=== PATIENT | female | born 1990 | race Two or more races ===

== ENCOUNTER → 2018-03-05 | Outpatient (CLI) | payer SELFPAY ==
--- NOTE | 2018-03-05 14:57 | RADIOLOGY REPORT (SQ) ---
EXAM DESCRIPTION: U/S [id number] TRNABD 1GES W/ODOP COMPLETED DATE/TIME: 03/05/2018 2:02 pm REASON FOR STUDY: Z34.81ENCOUNTER FOR SUPRVSN OF NORMAL , FIRST TRIMESTER Z34.81 ENCOUNTER FOR SUPRVSN OF NORMAL , FIRST TRIM COMPARISON: None. TECHNIQUE: Transabdominal static and realtime grayscale images acquired of the pelvis. Additional se lected spectral and color Doppler images recorded. All images stored on PACs. bHCG: Not available CLINICAL DATES: Not available LIMITATIONS: None. FINDINGS: FETUS: Living intrauterine . ULTRASOUND EGA: 12 weeks 0 days ULTRASOUND JULIA: 09/17/2018 CRL: 5 cm FHR: 153 beats per minute. SUBCHORIONIC BLEED: No SIZE OF BLEED: Not applicable. UTERUS: No masses. No anomalies. Uterus is 11 x 9 x 7 cm in size. CERVICAL LENGTH: 3 cm Closed. RIGHT ADNEXA: Not visualized LEFT ADNEXA: Not visualized FREE FLUID: None. OTHER: No other significant finding. IMPRESSION: LIVING INTRAUTERINE . EGA 12 weeks 0 days Trimester of : First - 0 to 13 weeks. TECHNICAL DOCUMENTATION: JOB ID: [id number] [employer]- All Rights Reserved rev Reading location - IP/workstation name: [email or web address]
== END ==
LOC: EDBD 13:00 → RAD 17:15
PROVIDERS: ATTEND Nurse Practitioner Women's Health
DX: Z34.81 Encounter for supervision of other normal pregnancy, first trimester (principal)
CPT/HCPCS: 76801

== ENCOUNTER 2018-09-07 16:33 | Inpatient (IN) | payer SELFPAY ==
[2018-09-07] MEDS ORDERED: RINGERS SOLUTION,LACTATED 1,000 ML IV ONE (17:38)
[2018-09-07] MEDS ORDERED: RINGERS SOLUTION,LACTATED 1,000 ML IV PRN (17:38)
[2018-09-07] MEDS ORDERED: MISOPROSTOL 0.2 MG TABLET ONE (18:00)
[2018-09-07] MEDS ORDERED: OXYTOCIN/NORMAL SALINE 20 UNIT/1,000 ML RTUINJ ONE (18:00)
[2018-09-07] MEDS ORDERED: LIDOCAINE 1% INJ-PF (10 MG/ML) 30 ML SDV ONE (18:00)
[2018-09-07] MEDS ORDERED: OXYTOCIN 10 UNIT/ML VIAL ONE (18:00)
[2018-09-07 18:15] LABS: ABSOLUTE LYMPHOCYTES (AUTO) 1.1 10^3/uL (0.5-4.7); ABSOLUTE MONOCYTES (AUTO) 0.4 10^3/uL (0.1-1.4); ABSOLUTE NEUT (AUTO) 6.5 10^3/uL (1.7-8.2); BASOPHILS % (AUTO) 0.5 % (0-2); HEMATOCRIT 36.8 % (36.0-47.0); HEMOGLOBIN 12.8 g/dL (12.0-15.5); LYMPHOCYTES % (AUTO) 13.5 % (13-45); MEAN CORPUSCULAR HEMOGLOBIN 29.4 pg (27.0-33.4); MEAN CORPUSCULAR HGB CONC 34.8 g/dL (32.0-36.0); MEAN CORPUSCULAR VOLUME 84 fl (80-97); MONOCYTES % (AUTO) 5.1 % (3-13); PLATELET COUNT 203 10^3/uL (150-450); RED BLOOD COUNT 4.37 10^6/uL (3.72-5.28); RED CELL DISTRIBUTION WIDTH 15.4 % (11.5-14.0); SEGMENTED NEUTROPHILS % (AUTO) 80.9 % (42-78); TOTAL CELLS COUNTED % (AUTO) 100 %
--- NOTE | 2018-09-07 18:42 | Admission Physical ---
Datetime Report Generated by CPN: 09/07/2018 18:41 CURRENT ADMISSION Chief Complaint: Uterine Contractions Indication for Induction: Not Applicable Admit Impression : Term, Intrauterine ; Active Labor Admit Plan: Admit to Unit; Initiate Labor Protocol ALLERGIES Medication Allergies: No Medication Allergies: No Known Allergies (09/07/2018) Latex: No Latex Allergies Food Allergies: n/a Environmental Allergies: n/a OBSTETRICAL HISTORY EDC: 09/17/2018 00:00 : 2 Para: 1 Term: 1 : 0 SAB: 0 IAB: 0 Ectopic: 0 Livin Cesareans: 0 VBACs: 0 Multiple Births: 0 Gestational Diabetes: No Rh Sensitization: No Incompetent Cervix: No DREAD: No Infertility: No ART Treatment: No Uterine Anomaly: No IUGR: No Hx Previous C/S: No Macrosomia: No Hx Loss/Stillborn: No PIH: No Hx : No Placenta Previa/Abruption: No Depression/PP Depression: No PTL/PROM: No Post Hemorrhage: No Current Procedures: Ultrasound Obstetrical History Comments: G1- term G2- current SEE RECORDS Alcohol: No Marijuana : No Cocaine: No Other Illicit Drugs: No Cigarettes: Unknown if ever Smoked. [id number] MEDICAL HISTORY Diabetes: No Blood Transfusion: No Pulmonary Disease (Asthma, TB): No Breast Disease: No Hypertension: No Sql Ssrs Developer Surgery: No Heart Disease: No Hosp/Surgery: No Autoimmune Disorder: No Anesthetic Complications: No Kidney Disease: No Abnormal Pap Smear: No Neuro/Epilepsy: No Psychiatric Disorders: No Other Medical Diseases: No Hepatitis/Liver Disease: No Significant Family History: No Varicosities/Phlebitis: No Trauma/Violence : No Thyroid Dysfunction: No INFECTIOUS HISTORY Gonorrhea: No Genital Herpes: No Chlamydia: No Tuberculosis: No Syphilis: No Hepatitis: No HIV/AIDS Exposure: No Rash or Viral Illness: No HPV: No PHYSICAL EXAM General: Normal HEENT: Normal Neurologic: Normal Thyroid: Normal Heart: Normal Lungs: Normal Breast: Normal Back: Normal Abdomen: Normal Genitourinary Exam: Normal Extremities: Normal DTRs: Normal Pelvic Type: Adequate Vital Signs: Reviewed VAGINAL EXAM Dilatation: 4 Effacement: 90 Station: -2 MEMBRANES Pooling: Negative Membranes: Intact Amniotic Fluid Color: Clear FETUS A EGA: 38.4 Monitoring: External US FHR- Baseline: 140 Variability: Moderate 6-25bpm Accelerations: 15X15 Decelerations: None FHR Category: Category I Estimated Weight (gm): 3500 Presentation: Vertex PLANS FOR LABOR AND DELIVERY Labor and Delivery: None Pain Management: Natural Feeding Preference: Both Benefit of Breast Feed Discussed: Yes Circumcision: No INFORMED CONSENT Signature: with User ID: [email or web address]
[2018-09-07] MEDS ORDERED: EPHEDRINE SULFATE INJ 50 MG/1 ML AMPULE ONE (21:07)
[2018-09-07] MEDS ORDERED: PHENYLEPHRINE HCL INJ/PF 10 MG/1 ML SDV ONE (21:07)
[2018-09-07] MEDS ORDERED: FENTANYL CITRATE INJ/PF 100 MCG/2 ML AMPUL ONE (21:07)
[2018-09-07] MEDS ORDERED: BUPIVACAINE HCL 0.25 % INJ/PF (2.5 MG/1 ML) 30 ML VIAL ONE (21:08)
[2018-09-07] MEDS ORDERED: FENTANYL/BUPIVACAINE/NS/PF 300 MCG/150 ML RTUINJ EPI ONE (21:09)
[2018-09-08] MEDS ORDERED: ACETAMINOPHEN 650 MG SUPP.RECT PR PRN (02:40)
[2018-09-08] MEDS ORDERED: DIPHENHYDRAMINE HCL 25 MG CAPSULE PO PRN (02:40)
[2018-09-08] MEDS ORDERED: PROMETHAZINE HCL 25 MG SUPP.RECT PR PRN (02:40)
[2018-09-08] MEDS ORDERED: MAGNESIUM HYDROXIDE SUSP 30 ML UDCUP PO PRN (02:40)
[2018-09-08] MEDS ORDERED: NA PHOS,M-B/NA PHOS,DI-BA (ADULT) 133 ML ENEMA PR PRN (02:40)
[2018-09-08] MEDS ORDERED: OXYTOCIN/NORMAL SALINE 20 UNIT/1,000 ML RTUINJ IV PRN (02:40)
[2018-09-08] MEDS ORDERED: ZOLPIDEM TARTRATE 5 MG TABLET PO PRN (02:40)
[2018-09-08] MEDS ORDERED: ACETAMINOPHEN WITH CODEINE #3 TABLET PO PRN ×2 (02:40)
[2018-09-08] MEDS ORDERED: GLYCERIN/WITCH HAZEL LEAF 1 EACH MED..PAD TP PRN (02:40)
[2018-09-08] MEDS ORDERED: DIBUCAINE 1% OINTMENT 28 GM TP PRN (02:40)
[2018-09-08] MEDS ORDERED: BENZOCAINE/MENTHOL AEROSOL SPRAY 56 ML TOP PRN (02:40)
[2018-09-08] MEDS ORDERED: DIPH/PERTUSS(ACELL)/TETANUS VAC/PF 0.5 ML SYR (>=10YO) IM PRN (02:40)
[2018-09-08] MEDS ORDERED: PSEUDOEPHEDRINE HCL 30 MG TABLET PO PRN (02:40)
[2018-09-08] MEDS ORDERED: PROMETHAZINE HCL 25 MG TABLET PO PRN (02:40)
[2018-09-08] MEDS ORDERED: MEASLES,MUMPS&RUBELLA VACC/PF 0.5 ML VIAL SUBCUT PRN (02:40)
[2018-09-08] MEDS ORDERED: PROMETHAZINE HCL INJ 25 MG/1 ML VIAL IV PRN (02:40)
[2018-09-08] MEDS: IBUPROFEN 800 MG TABLET PO SCH ×3 (06:44→22:34)
[2018-09-08] MEDS: SENNOSIDES/DOCUSATE 8.6-50 MG 1 EACH TABLET PO SCH (10:12)
[2018-09-08] MEDS: DOCUSATE SODIUM 100 MG CAPSULE PO SCH ×2 (10:12→17:45)
[2018-09-08] MEDS: FAMOTIDINE 20 MG TABLET PO SCH ×2 (10:13→22:35)
[2018-09-08] MEDS: PRENATAL VITAMIN W DHA CAPSULE PO SCH (10:13)
[2018-09-08] MEDS: FERROUS SULFATE 325 MG TABLET PO SCH ×2 (10:13→17:45)
--- NOTE | 2018-09-08 10:56 | PDOC PROGRESS REPORT ---
Subjective-OB Progress Note for:: 09/08/18 Subjective: Doing well, no c/o, breast and bottle, voiding, no c/o Physical Exam (OB) Vital Signs: Temp Pulse Resp BP Pulse Ox 98.4 F 66 18 103/55 L 97 09/08/18 08:52 09/08/18 08:52 09/08/18 08:52 09/08/18 08:52 09/08/18 08:52 Intake & Output 09/07/18 09/08/18 09/09/18 06:59 06:59 06:59 Weight 64.3 kg Objective-Diagnostic Laboratory: 09/07/18 18:00 09/07/18 09/07/18 18:00 18:00 WBC 8.0 RBC 4.37 Hgb 12.8 Hct 36.8 MCV 84 MCH 29.4 MCHC 34.8 RDW 15.4 H Plt Count 203 Seg Neutrophils % 80.9 H Lymphocytes % 13.5 Monocytes % 5.1 Eosinophils % 0.0 Basophils % 0.5 Absolute Neutrophils 6.5 Absolute Lymphocytes 1.1 Absolute Monocytes 0.4 Absolute Eosinophils 0.0 Absolute Basophils 0.0 Blood Type O POSITIVE Antibody Screen NEGATIVE Assessment and Plan(PN) - Assessment and Plan (1) Normal vaginal delivery Is this a current diagnosis for this admission?: Yes - Time Spent with Patient Time with patient: Less than 15 minutes Medications reviewed and adjusted accordingly: Yes - Disposition Anticipated Discharge: Home Within: within 48 hours
[2018-09-09] MEDS: IBUPROFEN 800 MG TABLET PO SCH ×3 (05:41→21:17)
[2018-09-09 07:07] LABS: HEMATOCRIT 33.3 % (36.0-47.0); HEMOGLOBIN 11.5 g/dL (12.0-15.5); MEAN CORPUSCULAR HEMOGLOBIN 29.6 pg (27.0-33.4); MEAN CORPUSCULAR HGB CONC 34.6 g/dL (32.0-36.0); MEAN CORPUSCULAR VOLUME 86 fl (80-97); PLATELET COUNT 182 10^3/uL (150-450); RED CELL DISTRIBUTION WIDTH 15.6 % (11.5-14.0); WHITE BLOOD COUNT 8.6 10^3/uL (4.0-10.5)
--- NOTE | 2018-09-09 09:59 | PDOC PROGRESS REPORT ---
Subjective Progress Note for:: 09/09/18 Subjective:: Patient states that she feels good; breast-feeding going well. She states that her lochia is decreasing. She denies chest pain, shortness of breath, fever/ chills or nausea/vomiting. She is ambulating and voiding without difficulty Reason For Visit: Physical Exam - Physical Exam Vital Signs: Temp Pulse Resp BP Pulse Ox 97.9 F 69 16 106/67 97 09/09/18 08:33 09/09/18 08:33 09/09/18 08:33 09/09/18 08:33 09/09/18 08:33 Intake & Output 09/08/18 09/09/18 09/10/18 06:59 06:59 06:59 Weight 64.3 kg General appearance: PRESENT: no acute distress Respiratory exam: PRESENT: clear to auscultation jared Cardiovascular exam: PRESENT: RRR GI/Abdominal exam: PRESENT: normal bowel sounds, soft - Fundus firm and below umbilicus Extremities exam: ABSENT: calf tenderness, clubbing, full ROM, joint swelling, pedal edema, tenderness, +1 edema, +2 edema, other Result Laboratory Results: 09/09/18 06:36 09/09/18 06:36 WBC 8.6 RBC 3.90 Hgb 11.5 L Hct 33.3 L MCV 86 MCH 29.6 MCHC 34.6 RDW 15.6 H Plt Count 182 Assessment & Plan - Diagnosis (1) Normal vaginal delivery Is this a current diagnosis for this admission?: Yes - Time Time Spent with patient: Less than 15 minutes Within: within 48 hours - Plan Summary Plan Summary: Plan: 1. Continue care
[2018-09-09] MEDS: PRENATAL VITAMIN W DHA CAPSULE PO SCH (10:15)
[2018-09-09] MEDS: FERROUS SULFATE 325 MG TABLET PO SCH ×2 (10:15→17:35)
[2018-09-09] MEDS: DOCUSATE SODIUM 100 MG CAPSULE PO SCH ×2 (10:15→17:35)
[2018-09-09] MEDS: SENNOSIDES/DOCUSATE 8.6-50 MG 1 EACH TABLET PO SCH (10:15)
[2018-09-09] MEDS: FAMOTIDINE 20 MG TABLET PO SCH ×2 (10:15→21:17)
[2018-09-10] MEDS: IBUPROFEN 800 MG TABLET PO SCH ×2 (05:16→13:26)
--- NOTE | 2018-09-10 10:03 | PDOC DISCHARGE SUMMARY ---
Final Diagnosis Discharge Date: 09/10/18 - PP Day #2, Breast and bottle feeding, doing well, no complaints O+ Rubella Immune - Final Diagnosis (1) Normal course Is this a current diagnosis for this admission?: Yes (2) Normal vaginal delivery Is this a current diagnosis for this admission?: Yes Discharge Data - Discharge Medication Prescriptions: Ibuprofen [Motrin 800 mg Tablet] 800 mg PO Q8 #60 tablet Home Medications: Ibuprofen [Motrin 800 mg Tablet] 800 mg PO Q8 #60 tablet 09/10/18 Reason(s) for Admission: Onset of Labor Procedures: Ultrasound Intrapartum Procedure(s): Spontaneous Vaginal Delivery - Diagnosis Test Laboratory: Temp Pulse Resp BP Pulse Ox 98.2 F 75 17 130/81 H 97 09/10/18 08:21 09/10/18 08:21 09/10/18 08:21 09/10/18 08:21 09/10/18 08:21 09/07/18 09/09/18 18:00 06:36 RBC 4.37 3.90 Hgb 12.8 11.5 L Hct 36.8 33.3 L - Discharge information/Instructions Discharge Activity: Activity As Tolerated, Pelvic Rest Discharge Diet: As Tolerated, Regular Disposition: HOME, SELF-CARE Follow up with: [facility] in: 4, Weeks
[2018-09-10] MEDS: DOCUSATE SODIUM 100 MG CAPSULE PO SCH (10:25)
[2018-09-10] MEDS: SENNOSIDES/DOCUSATE 8.6-50 MG 1 EACH TABLET PO SCH (10:25)
[2018-09-10] MEDS: FERROUS SULFATE 325 MG TABLET PO SCH (10:25)
[2018-09-10] MEDS: FAMOTIDINE 20 MG TABLET PO SCH (10:25)
[2018-09-10] MEDS: PRENATAL VITAMIN W DHA CAPSULE PO SCH (10:25)
[2018-09-10 11:01] VITALS: BP 103/55
--- NOTE | 2018-09-17 10:05 | Delivery Summary ---
Del Sum A-C Datetime Report Generated by CPN: 09/17/2018 10:05 DELIVERY PERSONNEL DELIVERY PERSONNEL: [id number] Delivery Doctor:: Jennifer Hopkins MD Labor and Delivery Nurse:: Amber Peres RNcone picker Nurse:: Sophie Borrero RN Ortho Nurse/EPIC CADENCE ANALYST: Mallory Chari, ST MATERNAL INFORMATION Delivery Anesthesia: Epidural Medications After Delivery: Pitocin Drip 20 Units/1000ml NSS Estimated Blood Loss (ml): 200 Maternal Complications: None LABOR SUMMARY EDC: 09/17/2018 00:00 No. Babies in Womb: 1 Attempted: No Labor Anesthesia: Epidural LABOR INFORMATION Reason for Induction: Not Applicable Onset of Labor: 09/07/2018 17:05 Complete Dilatation: 09/08/2018 00:49 Oxytocin: Augmentation Group B Beta Strep: negative Steroids Given: None Reason Steroids Not Administered: Not Applicable MEMBRANES Membranes Rupture Method: Artificial Rupture of Membranes: 09/08/2018 00:34 Length of Rupture (hr): 1.90 Amniotic Fluid Color: Clear Amniotic Fluid Amount: Small Amniotic Fluid Odor: Normal STAGES OF LABOR Stage 1 hr: 7 Stage 1 min: 44 Stage 2 hr: 1 Stage 2 min: 39 Stage 3 hr: 0 Stage 3 min: 7 Total Time in Labor hr: 9 Total Time in Labor min: 30 VAGINAL DELIVERY Episiotomy: None Laceration #1: None Laceration Extension #1: N/A Laceration Repair: Not Applicable Sponge Count Correct: N/A CSECTION DELIVERY Primary Indication: N/A Secondary Indication: N/A CSection Incision: N/A BABY A INFORMATION Delivery Date/Time: 09/08/2018 02:28 Method of Delivery: Vaginal Method of Delivery: Vaginal Born in Route : No : N/A Forceps: N/A Vacuum Extraction: N/A Shoulder Dystocia : No PRESENTATION/POSITION BABY A Presentation: Cephalic Cephalic Presentation: Vertex Vertex Position: Right Occipital Anterior Breech Presentation: N/A PLACENTA INFORMATION BABY A Placenta Delivery Time : 09/08/2018 02:35 Placenta Method of Delivery: Spontaneous Placenta Method of Delivery: Spontaneous Placenta Status: Delivered SCORES BABY A Heart Rate 1 min: >100 bpm Resp Effort 1 min: Good Cry Reflex Irritability 1 min: Cough or Sneeze or Pulls Away Muscle Tone 1 min: Active Motion Color 1 min: Body [place], Extremities Blue Resuscitation Effort 1 min: Tactile Stimulation SCORE 1 MIN: 9 Heart Rate 5 min: >100 bpm Resp Effort 5 min: Good Cry Reflex Irritability 5 min: Cough or Sneeze or Pulls Away Muscle Tone 5 min: Active Motion Color 5 min: Body [place], Extremities Blue Resuscitation Effort 5 min: Tactile Stimulation SCORE 5 MIN: 9 INFORMATION BABY A Gestational Age at Delivery: 38.5 Gestational Status: Early Term- 37- 38.6 Weeks Infant Outcome : Liveborn Infant Condition : Stable Sex: Male Infant Sex: Male IDENTIFICATION BABY A Infant Verification Date/Time: 09/08/2018 03:42 ID Band Number: [id number] Mother's Name Verified: Yes RN Verifying Infant: rn jaelyn Additional Verifying Personnel: rn hill WEIGHT/LENGTH BABY A Birthweight (gm): 3560 Weight (lb): 7 Weight (oz): 14 Length (in): 18.75 Length (cm): 47.63 CORD INFORMATION BABY A No. Cord Vessels: 3 Nuchal Cord : N/A Cord Blood Taken: Yes-For Eval (Mom's Blood Type - or O+) Suction: Mouth ASSESSMENT BABY A Complications: None Physical Findings at Delivery: Cap[place] Infant Respirations: Appears Normal Skin to Skin: Yes Awning Finisher/ALS Called : No Infant Care By: RN Annsmmat Transferred To: Remains with Mother BABY B INFORMATION : N/A SIGNATURES Signature: with User ID: [email or web address]
== END 2018-09-10 15:00 | disposition home or self-care (01) | DRG 807 ==
LOC: LC 16:33 → LR 17:44 → 2S 09-08 04:58
PROVIDERS: ADMIT Obstetrics & Gynecology; ATTEND Obstetrics & Gynecology
PROC: 4A1HXCZ Monitoring of Products of Conception, Cardiac Rate, External Approach (ICD-10-PCS; 2018-09-07)
PROC: 10E0XZZ Delivery of Products of Conception, External Approach (ICD-10-PCS; principal; 2018-09-08)
PROC: 3E02340 Introduction of Influenza Vaccine into Muscle, Percutaneous Approach (ICD-10-PCS; 2018-09-10)
DX: O80 Encounter for full-term uncomplicated delivery (principal); Z37.0 Single live birth; Z3A.38 38 weeks gestation of pregnancy; Z23 Encounter for immunization
CPT/HCPCS: 36415; 85025; 85027; 86592; 86850; 86900; 86901; 90471; 90686; 94760; G0008; J2370; J2590; J3010; J3490

== ENCOUNTER → 2019-06-24 | Outpatient (CLI) | payer SELFPAY ==
--- NOTE | 2019-06-24 16:23 | RADIOLOGY REPORT (SQ) ---
EXAM DESCRIPTION: U/S OB 14+ TRNABD 1GES W/O DOP COMPLETED DATE/TIME: 06/24/2019 3:26 pm REASON FOR STUDY: Z34.82 ENCOUNTER FOR SUPRVSN OF NORMAL , SECOND TRIMESTER Z34.82 ENCOUNT ER FOR SUPRVSN OF NORMAL , SECOND TRI COMPARISON: None. TECHNIQUE: Static and Dynamic grayscale imaging performed of gravid uterus using transabdominal appr oach. Additional selected color Doppler and spectral images recorded. All stored on PACS. LIMITATIONS: None. FINDINGS: FETUSES SEEN:1 EGA: 26 weeks 6 days Calculated using BPD,FL,HC,AC documented on images. No discrepancy with clinica l dates. JULIA: 09/24/2019 EFW: 939+/- 139 grams PERCENTILE: Not calculated. LVP: 5.3 cm. PLACENTA: Posterior. GRADE: I PRESENTATION: Cephalic. ANATOMY: HEART RATE: 180 beats per minute. FOUR CHAMBER HEART: Visualized. THREE VESSEL CORD: Yes. CORD INSERTION: Visualized. KIDNEYS AND BLADDER: Visualized. Appear normal. STOMACH: Visualized. Appears normal. SPINE: Normal as visualized. BRAIN AND LATERAL VENTRICLES: Visualized. Appear normal. OTHER: No other significant finding. MATERNAL ADNEXA: Maternal ovaries not visualized. CERVICAL LENGTH: 2.5 cm Closed. OTHER: No other significant finding. IMPRESSION: LIVING INTRAUTERINE . ESTIMATED GESTATIONAL AGE 26 weeks 6 days NO VISUALIZED ANOMALIES. Trimester of : Second trimester - 13 weeks 1 day to 27 weeks 6 days. TECHNICAL DOCUMENTATION: JOB ID: [id number] [employer]- All Rights Reserved Reading location - IP/workstation name: [email or web address]
== END ==
LOC: RAD 14:35
PROVIDERS: ATTEND Nurse Practitioner Family
DX: Z34.82 Encounter for supervision of other normal pregnancy, second trimester (principal)
CPT/HCPCS: 76805

== ENCOUNTER 2019-09-18 16:59 | Inpatient (IN) | payer SELFPAY ==
[2019-09-18] MEDS ORDERED: RINGERS SOLUTION,LACTATED 1,000 ML IV PRN (17:09)
[2019-09-18] MEDS ORDERED: OXYTOCIN/NORMAL SALINE 20 UNIT/1,000 ML RTUINJ ONE (17:10)
[2019-09-18] MEDS ORDERED: LIDOCAINE 1% INJ-PF (10 MG/ML) 30 ML SDV ONE (17:10)
[2019-09-18] MEDS ORDERED: MISOPROSTOL 0.2 MG TABLET ONE (17:10)
[2019-09-18] MEDS ORDERED: OXYTOCIN 10 UNIT/ML VIAL ONE (17:10)
--- NOTE | 2019-09-18 17:42 | Admission Physical ---
Datetime Report Generated by CPN: 09/18/2019 17:42 CURRENT ADMISSION Chief Complaint: Uterine Contractions Indication for Induction: Not Applicable Admit Impression : Term, Intrauterine ; Active Labor; Intact Membranes Admit Plan: Admit to Unit ALLERGIES Medication Allergies: No Known Allergies (09/07/2018) OBSTETRICAL HISTORY : 3 Para: 2 Term: 2 : 0 SAB: 0 IAB: 0 Ectopic: 0 Livin Cesareans: 0 VBACs: 0 Multiple Births: 0 Gestational Diabetes: No Rh Sensitization: No Incompetent Cervix: No DREAD: No Infertility: No ART Treatment: No Uterine Anomaly: No IUGR: No Hx Previous C/S: No Macrosomia: No Hx Loss/Stillborn: No PIH: No Hx : No Placenta Previa/Abruption: No Depression/PP Depression: No PTL/PROM: No Post Hemorrhage: No Current Procedures: Ultrasound; NST SEE RECORDS Alcohol: No Marijuana : No Cocaine: No Other Illicit Drugs: No MEDICAL HISTORY Diabetes: No Blood Transfusion: No Pulmonary Disease (Asthma, TB): No Breast Disease: No Hypertension: No Exchange Architect Surgery: No Heart Disease: No Hosp/Surgery: No Autoimmune Disorder: No Anesthetic Complications: No Kidney Disease: No Abnormal Pap Smear: No Neuro/Epilepsy: No Psychiatric Disorders: No Other Medical Diseases: No Hepatitis/Liver Disease: No Significant Family History: No Varicosities/Phlebitis: No Trauma/Violence : No Thyroid Dysfunction: No INFECTIOUS HISTORY Gonorrhea: No Genital Herpes: No Chlamydia: No Tuberculosis: No Syphilis: No Hepatitis: No HIV/AIDS Exposure: No Rash or Viral Illness: No HPV: No PHYSICAL EXAM General: Normal HEENT: Normal Neurologic: Normal Thyroid: Normal Heart: Normal Lungs: Normal Breast: Normal Back: Normal Abdomen: Normal Genitourinary Exam: Normal Extremities: Normal DTRs: Normal Pelvic Type: Adequate Vital Signs: Reviewed; Within Normal Limits VAGINAL EXAM Dilatation: 6 Effacement: 90 Station: 0 Contraction Comments: q 2-3 MEMBRANES Membranes: Intact FETUS A Monitoring: External US FHR- Baseline: 130s Variability: Moderate 6-25bpm Accelerations: Absent Decelerations: None FHR Category: Category I Admit Comment: w/IUP @ 40-1/7 weeks presents to L_D c/o contractions. She reports good movement. She GBS Neg. No co-morbidities. Language barrier. PLANS FOR LABOR AND DELIVERY Labor and Delivery: None Pain Management: Medications; Epidural Feeding Preference: Both Benefit of Breast Feed Discussed: Yes INFORMED CONSENT Signature: with User ID: [email or web address]
[2019-09-18] MEDS ORDERED: ZOLPIDEM TARTRATE 5 MG TABLET PO PRN (18:10)
[2019-09-18] MEDS ORDERED: ACETAMINOPHEN WITH CODEINE #3 TABLET PO PRN ×2 (18:10)
[2019-09-18] MEDS ORDERED: DIBUCAINE 1% OINTMENT 56 GM TP PRN (18:10)
[2019-09-18] MEDS ORDERED: BENZOCAINE/MENTHOL AEROSOL SPRAY 56 ML TOP PRN (18:10)
[2019-09-18] MEDS ORDERED: DIPH/PERTUSS(ACELL)/TETANUS VAC/PF 0.5 ML SYR (>=10YO) IM PRN (18:10)
[2019-09-18] MEDS ORDERED: OXYTOCIN/NORMAL SALINE 20 UNIT/1,000 ML RTUINJ IV PRN (18:10)
[2019-09-18 18:35] LABS: ABSOLUTE MONOCYTES (AUTO) 0.2 10^3/uL (0.1-1.4); ABSOLUTE NEUT (AUTO) 7.4 10^3/uL (1.7-8.2); BASOPHILS % (AUTO) 0.3 % (0-2); HEMATOCRIT 39.6 % (36.0-47.0); HEMOGLOBIN 13.5 g/dL (12.0-15.5); LYMPHOCYTES % (AUTO) 11.7 % (13-45); MEAN CORPUSCULAR HEMOGLOBIN 29.4 pg (27.0-33.4); MEAN CORPUSCULAR HGB CONC 34.2 g/dL (32.0-36.0); MEAN CORPUSCULAR VOLUME 86 fl (80-97); MONOCYTES % (AUTO) 2.8 % (3-13); PLATELET COUNT 168 10^3/uL (150-450); RED BLOOD COUNT 4.61 10^6/uL (3.72-5.28); RED CELL DISTRIBUTION WIDTH 15.7 % (11.5-14.0); SEGMENTED NEUTROPHILS % (AUTO) 85.2 % (42-78); TOTAL CELLS COUNTED % (AUTO) 100 %; WHITE BLOOD COUNT 8.7 10^3/uL (4.0-10.5)
[2019-09-18] MEDS ORDERED: IBUPROFEN 800 MG TABLET ONE (18:56)
[2019-09-18 22:33] LABS: BILIRUBIN,URINE NEGATIVE (NEGATIVE); GLUCOSE, URINE 150 mg/dL (NEGATIVE); KETONES,URINE NEGATIVE (NEGATIVE); LEUKOCYTE ESTERASE,URINE NEGATIVE (NEGATIVE); NITRITE,URINE NEGATIVE (NEGATIVE); PROTEIN,URINE >=500 mg/dL (NEGATIVE); URINE SPECIFIC GRAVITY 1.034; UROBILINOGEN,URINE NEGATIVE mg/dL (<2.0)
[2019-09-18 22:36] LABS: APPEARANCE,URINE TURBID; COLOR,URINE RED
[2019-09-18 23:02] LABS: URINE AMPHETAMINES SCREEN NEGATIVE; URINE BARBITURATES SCREEN NEGATIVE; URINE BENZODIAZEPINES SCREEN NEGATIVE; URINE COCAINE SCREEN NEGATIVE; URINE MARIJUANA (THC) SCREEN NEGATIVE; URINE METHADONE SCREEN NEGATIVE; URINE PHENCYCLIDINE SCREEN NEGATIVE
[2019-09-19] MEDS: IBUPROFEN 800 MG TABLET PO SCH ×4 (02:29→21:17)
[2019-09-19 08:43] LABS: HEMATOCRIT 31.8 % (36.0-47.0); MEAN CORPUSCULAR HEMOGLOBIN 29.7 pg (27.0-33.4); MEAN CORPUSCULAR HGB CONC 35.3 g/dL (32.0-36.0); MEAN CORPUSCULAR VOLUME 84 fl (80-97); PLATELET COUNT 160 10^3/uL (150-450); RED BLOOD COUNT 3.77 10^6/uL (3.72-5.28); RED CELL DISTRIBUTION WIDTH 15.5 % (11.5-14.0); WHITE BLOOD COUNT 8.8 10^3/uL (4.0-10.5)
[2019-09-19 08:44] LABS: HEMOGLOBIN 11.2 g/dL (12.0-15.5)
--- NOTE | 2019-09-19 08:49 | PDOC PROGRESS REPORT ---
Subjective-OB Progress Note for:: 09/19/19 Subjective: OOB in room, no c/o, breast/bottle, scant bleeding. voiding Physical Exam (OB) Vital Signs: Temp Pulse Resp BP Pulse Ox 97.8 F 64 16 102/63 99 09/19/19 07:30 09/19/19 07:30 09/19/19 07:30 09/19/19 07:30 09/19/19 07:30 Intake & Output 09/18/19 09/19/19 09/20/19 06:59 06:59 06:59 Output Total 217 Balance -217 Weight 63.9 kg - PIH/Pre-Eclampsia DTR's: 1 + Clonus: Negative Headache: Absent Epigastric Pain: No Visual Changes: No - Lochia Lochia Amount: Scant < 10 ml Lochia Color: Rubra/Red - Abdomen Description: Soft, Round Hernia Present: No Fundal Description: Firm, Midline Fundal Height: 1/u - 2/u Objective-Diagnostic Laboratory: 09/19/19 08:15 09/18/19 09/18/19 09/18/19 18:12 18:12 21:55 WBC 8.7 RBC 4.61 Hgb 13.5 Hct 39.6 MCV 86 MCH 29.4 MCHC 34.2 RDW 15.7 H Plt Count 168 Seg Neutrophils % 85.2 H Urine Color RED Urine Appearance TURBID Urine pH 7.0 Ur Specific [place] 1.034 Urine Protein >=500 H Urine Glucose (UA) 150 H Urine Ketones NEGATIVE Urine Blood NEGATIVE Urine Nitrite NEGATIVE Ur Leukocyte Esterase NEGATIVE Blood Type O POSITIVE Antibody Screen NEGATIVE 09/19/19 08:15 WBC 8.8 RBC 3.77 Hgb 11.2 L D Hct 31.8 L MCV 84 MCH 29.7 MCHC 35.3 RDW 15.5 H Plt Count 160 Seg Neutrophils % Urine Color Urine Appearance Urine pH Ur Specific [place] Urine Protein Urine Glucose (UA) Urine Ketones Urine Blood Urine Nitrite Ur Leukocyte Esterase Blood Type Antibody Screen Assessment and Plan(PN) - Assessment and Plan (1) Normal course Is this a current diagnosis for this admission?: Yes (2) Normal vaginal delivery Is this a current diagnosis for this admission?: Yes - Time Spent with Patient Time with patient: Less than 15 minutes Medications reviewed and adjusted accordingly: Yes - Disposition Anticipated Discharge: Home Within: within 24 hours
[2019-09-19] MEDS: PRENATAL VITAMIN W DHA CAPSULE PO SCH (09:04)
[2019-09-19] MEDS: SENNOSIDES/DOCUSATE 8.6-50 MG 1 EACH TABLET PO SCH (09:04)
[2019-09-19] MEDS: FERROUS SULFATE 325 MG TABLET PO SCH ×2 (09:04→17:24)
[2019-09-19] MEDS: DOCUSATE SODIUM 100 MG CAPSULE PO SCH ×2 (09:04→17:24)
[2019-09-20] MEDS: IBUPROFEN 800 MG TABLET PO SCH (05:18)
[2019-09-20 07:38] VITALS: BP 98/58
[2019-09-20] MEDS: FERROUS SULFATE 325 MG TABLET PO SCH (09:31)
[2019-09-20] MEDS: PRENATAL VITAMIN W DHA CAPSULE PO SCH (09:31)
[2019-09-20] MEDS: DOCUSATE SODIUM 100 MG CAPSULE PO SCH (09:31)
[2019-09-20] MEDS: SENNOSIDES/DOCUSATE 8.6-50 MG 1 EACH TABLET PO SCH (09:31)
--- NOTE | 2019-09-20 10:10 | PDOC PROGRESS REPORT ---
Subjective-OB Progress Note for:: 09/20/19 Subjective: Doing well, no c/o, voiding, scant lochia Physical Exam (OB) Vital Signs: Temp Pulse Resp BP Pulse Ox 97.4 F 77 18 98/58 L 99 09/20/19 07:18 09/20/19 07:18 09/20/19 07:18 09/20/19 07:18 09/20/19 07:18 Intake & Output 09/19/19 09/20/19 09/21/19 06:59 06:59 06:59 Output Total 217 Balance -217 Weight 63.9 kg - PIH/Pre-Eclampsia DTR's: 2 + Clonus: Negative Headache: Absent Epigastric Pain: No Visual Changes: No - Lochia Lochia Amount: Small 10-25 ml Lochia Color: Rubra/Red - Abdomen Description: Soft Hernia Present: No Fundal Description: Firm Fundal Height: u/u - u/2 Objective-Diagnostic Laboratory: 09/19/19 08:15 Assessment and Plan(PN) - Assessment and Plan (1) Normal course Is this a current diagnosis for this admission?: Yes (2) Normal vaginal delivery Is this a current diagnosis for this admission?: Yes - Time Spent with Patient Time with patient: Less than 15 minutes Medications reviewed and adjusted accordingly: Yes - Disposition Anticipated Discharge: Home Within: within 24 hours
--- NOTE | 2019-09-20 10:17 | PDOC DISCHARGE SUMMARY ---
Impression - Admit/DC Date/PCP Admission Date/Primary Care Provider: 09/18/19 17:42 DIANELYS RIVERS Discharge Date: 09/20/19 - Discharge Diagnosis (1) Normal course Is this a current diagnosis for this admission?: Yes (2) Normal vaginal delivery Is this a current diagnosis for this admission?: Yes - Additional Information Resuscitation Status: Full Code Discharge Diet: As Tolerated, Regular Discharge Activity: Activity As Tolerated, Pelvic Rest Referrals: FRANKLIN BATISTA MD [ACTIVE STAFF] - (F/U [facility] or [facility] 4 weeks) Home Medications: Prenat 115/Iron Fum/Folic/Dss [ 19 Tablet] 1 each PO DAILY 09/18/19 HPI Gestational Age: 38.3 Reason(s) for Admission: Onset of Labor Procedures: Ultrasound Intrapartum Procedure(s): Spontaneous Vaginal Delivery - baby home with mother Hospital Course Hospital Course: routine Results Laboratory Results: WBC 8.8 10^3/uL (4.0-10.5) 09/19/19 08:15 RBC 3.77 10^6/uL (3.72-5.28) 09/19/19 08:15 Hgb 11.2 g/dL (12.0-15.5) L D 09/19/19 08:15 Hct 31.8 % (36.0-47.0) L 09/19/19 08:15 MCV 84 fl (80-97) 09/19/19 08:15 MCH 29.7 pg (27.0-33.4) 09/19/19 08:15 MCHC 35.3 g/dL (32.0-36.0) 09/19/19 08:15 RDW 15.5 % (11.5-14.0) H 09/19/19 08:15 Plt Count 160 10^3/uL (150-450) 09/19/19 08:15 Lymph % (Auto) 11.7 % (13-45) L 09/18/19 18:12 Lane % (Auto) 2.8 % (3-13) L 09/18/19 18:12 Eos % (Auto) 0.0 % (0-6) 09/18/19 18:12 Baso % (Auto) 0.3 % (0-2) 09/18/19 18:12 Absolute Neuts (auto) 7.4 10^3/uL (1.7-8.2) 09/18/19 18:12 Absolute Lymphs (auto) 1.0 10^3/uL (0.5-4.7) 09/18/19 18:12 Absolute Monos (auto) 0.2 10^3/uL (0.1-1.4) 09/18/19 18:12 Absolute Eos (auto) 0.0 10^3/uL (0.0-0.6) 09/18/19 18:12 Absolute Basos (auto) 0.0 10^3/uL (0.0-0.2) 09/18/19 18:12 Seg Neutrophils % 85.2 % (42-78) H 09/18/19 18:12 Urine Color RED 09/18/19 21:55 Urine Appearance TURBID 09/18/19 21:55 Urine pH 7.0 (5.0-9.0) 09/18/19 21:55 Ur Specific [place] 1.034 09/18/19 21:55 Urine Protein >=500 mg/dL (NEGATIVE) H 09/18/19 21:55 Urine Glucose (UA) 150 mg/dL (NEGATIVE) H 09/18/19 21:55 Urine Ketones NEGATIVE mg/dL (NEGATIVE) 09/18/19 21:55 Urine Blood NEGATIVE (NEGATIVE) 09/18/19 21:55 Urine Nitrite NEGATIVE (NEGATIVE) 09/18/19 21:55 Urine Bilirubin NEGATIVE (NEGATIVE) 09/18/19 21:55 Urine Urobilinogen NEGATIVE mg/dL (<2.0) 09/18/19 21:55 Ur Leukocyte Esterase NEGATIVE (NEGATIVE) 09/18/19 21:55 Urine Ascorbic Acid NEGATIVE (NEGATIVE) 09/18/19 21:55 Urine Opiates Screen NEGATIVE 09/18/19 21:55 Urine Methadone Screen NEGATIVE 09/18/19 21:55 Ur Barbiturates Screen NEGATIVE 09/18/19 21:55 Ur Phencyclidine Scrn NEGATIVE 09/18/19 21:55 Ur Amphetamines Screen NEGATIVE 09/18/19 21:55 U Benzodiazepines Scrn NEGATIVE 09/18/19 21:55 Urine Cocaine Screen NEGATIVE 09/18/19 21:55 U Marijuana (THC) Screen NEGATIVE 09/18/19 21:55 Blood Type O POSITIVE 09/18/19 18:12 Antibody Screen NEGATIVE 09/18/19 18:12 Plan Health Concerns: routine PP Plan of Treatment: normal PP course Goals: no complications Time Spent: Less than 30 Minutes
== END 2019-09-20 13:05 | disposition home or self-care (01) | DRG 807 ==
LOC: LC 16:59 → LR 17:42 → 2S 20:18
PROVIDERS: ADMIT Obstetrics & Gynecology; ATTEND Obstetrics & Gynecology
PROC: 10E0XZZ Delivery of Products of Conception, External Approach (ICD-10-PCS; principal; 2019-09-18)
DX: O62.3 Precipitate labor (principal); Z37.0 Single live birth; Z3A.40 40 weeks gestation of pregnancy
CPT/HCPCS: 36415; 80307; 81005; 85025; 85027; 86592; 86850; 86900; 86901; J2590; J3490